=== PATIENT | female | born 1980 | race Caucasian/White ===

== ENCOUNTER → 2024-06-27 13:25 | Outpatient (REF) | payer BC, SELFPAY | LOC: RAD 13:25 | PROVIDERS: ATTENDING PHYSICIAN Nurse Practitioner Family | DX: R05.3 Chronic cough (principal) | CPT/HCPCS: 71046 ==

== ENCOUNTER → 2024-10-02 13:13 | Outpatient (REF) | payer SELFPAY | LOC: RAD 13:13 | PROVIDERS: ATTENDING PHYSICIAN Nurse Practitioner Family; FAMILY PHYSICIAN Family Medicine | DX: Z01.89 Encounter for other specified special examinations (principal) | CPT/HCPCS: 75571 ==

== ENCOUNTER → 2024-10-17 16:32 | Outpatient (REF) | payer BC, SELFPAY | LOC: RCS 16:32 | PROVIDERS: ATTENDING PHYSICIAN Nurse Practitioner Family; FAMILY PHYSICIAN Family Medicine | DX: R01.1 Cardiac murmur, unspecified (principal); R00.0 Tachycardia, unspecified | CPT/HCPCS: 93306 ==